=== PATIENT | female | born 1975 | race Caucasian/White ===

== ENCOUNTER 2022-05-19 19:52 | Emergency (ER) | payer OTHER | END 2022-05-19 21:35 | disposition home or self-care (01) | LOC: CSHERS 19:52 | DX: S60.051A Contusion of right little finger without damage to nail, initial encounter (principal); S60.041A Contusion of right ring finger without damage to nail, initial encounter; V43.52XA Car driver injured in collision with other type car in traffic accident, initial encounter ==